=== PATIENT | male | born 1980 | race Caucasian/White ===

== ENCOUNTER 2023-10-29 08:29 | Outpatient (CLI) | payer BC, SELFPAY | END 2023-10-29 08:30 | disposition home or self-care (01) | PROVIDERS: PCP Family Medicine; Visit Provider Family Medicine | DX: E78.5 Hyperlipidemia, unspecified (principal); Z83.49 Family history of other endocrine, nutritional and metabolic diseases; Z80.8 Family history of malignant neoplasm of other organs or systems | CPT/HCPCS: 80061; 80076; 81291; 84443 ==

== ENCOUNTER 2023-11-13 14:04 | Outpatient (CLI) | payer BC, SELFPAY ==
[2023-11-13 14:56] VITALS: BP 127/86; PULSE 101
--- NOTE | 2023-11-13 15:18 | W.PM.STED ---
Stress Test Note Date Date of test: 11/13/23 Providers Primary care provider: Tom Reyes Stress test physician: Kris Westbrook Stress Test Note Stress test ordered: Stress Echo Indication for test: Chest pain Results discussion: Patient is a very nice 43-year-old gentleman who presents here with the above indication, cardiac stress test medical history port is reviewed in detail. I discussed with the patient the risks benefits and side effects he would like to proceed pretest EKG showed normal sinus rhythm, with a ventricular rate of 77 and a blood pressure 138 on 88. Standard Calin protocol is employed over a duration of 8 minutes 40 seconds and achieved a metabolic equivalent of 10.3 Mets his maximum heart rate was 170 which is 111% of the maximum. Test is terminated because of fatigue, during this test there is no ST wave changes suggestive of ischemia, there was no dysrhythmias. He had no anginal equivalent symptoms. Impression: Negative electrographic portion of stress test, subjectively negative, conditioning was felt to be moderate. Follow up suggested: Await echo images these will be read by Cardiology, clinical correlation with these will be needed, patient left this testing facility in excellent condition.
== END 2023-11-13 14:05 | disposition home or self-care (01) ==
LOC: STRESS 14:04
PROVIDERS: PCP Family Medicine; Visit Provider Family Medicine
DX: R07.9 Chest pain, unspecified (principal); E78.5 Hyperlipidemia, unspecified
CPT/HCPCS: 93016; 93325; 93351

== ENCOUNTER 2024-11-12 09:47 | Outpatient (CLI) | payer BC, SELFPAY | END 2024-11-12 09:48 | disposition home or self-care (01) | PROVIDERS: PCP Family Medicine; Visit Provider Family Medicine | DX: E78.5 Hyperlipidemia, unspecified (principal); E66.9 Obesity, unspecified; R53.1 Weakness; M79.10 Myalgia, unspecified site; Z13.0 Encounter for screening for diseases of the blood and blood-forming organs and certain disorders involving the immune mechanism; Z13.1 Encounter for screening for diabetes mellitus | CPT/HCPCS: 80048; 80061; 82728; 84403; 84439; 84443 ==

== ENCOUNTER 2025-01-23 08:31 | Outpatient (CLI) | payer BC, SELFPAY ==
--- NOTE | 2025-01-23 09:00 | CRLHL7_ITS ---
For Patients: As a result of the Century Cures Act, medical imaging exams and procedure reports are released immediately into your electronic medical record. You may view this report before your referring provider. If you have questions, please contact your health care provider. CLINICAL HISTORY: Bilateral scrotal swelling TECHNIQUE: Grover scale imaging was performed of the scrotum. In addition color Doppler and spectral Doppler analysis was performed of the testes. FINDINGS: Normal blood flow to both testes. Small 0.2 centimeter echogenic focus in the right superior testis The right testis measures 3.9 x 2.7 x 3.1 centimeters in size and the left testis measures 4.1 x 2.1 52.6 centimeters.. The epididymis appears normal bilaterally. No varicocele is seen small right hydrocele IMPRESSION: 1. Normal blood flow to both testes. A 2 millimeter echogenic focus in the right testis without shadowing. Urology consultation follow-up imaging in 3 months recommended. 2. Mild right hydrocele. Dictated by Abigail Robert MD @ 01/26/2025 7:18:04 AM (Electronically Signed)
== END 2025-01-23 08:32 | disposition home or self-care (01) ==
PROVIDERS: PCP Family Medicine; Visit Provider Nurse Practitioner Family
DX: N50.89 Other specified disorders of the male genital organs (principal); N43.3 Hydrocele, unspecified
CPT/HCPCS: 76870; 93976